=== PATIENT | male | born 1960 | race Caucasian/White ===

== ENCOUNTER 2017-10-28 20:11 | Inpatient (IN) | payer SELFPAY ==
--- NOTE | 2017-10-28 20:29 | ER Report ---
History and Physical Time Seen By MD: 20:28 Hx. of Stated Complaint: PT STATES HE HAS A KIDNEY STONE ON THE LEFT SIDE. PT STATES HE HAS BLOOD IN THE URINE, PT NAUSEATED AT THIS TIME. PT HAS HX OF KIDNEY STONES HPI/ROS CHIEF COMPLAINT: kidney stone, left side HISTORY OF PRESENT ILLNESS: This is a 56 year old male. He has been having left sided flank and lower abdominal pain consistent with his history of kidney stones in the past. Has blood in urine. Nausea and vomiting. Many stones in the past. Medullary spongy kidney disease. No fevers or chills. Pain is severe, nothing relieves it. Normal bowels. Allergies: Coded Allergies: erythromycin base (Verified Allergy, Unknown, COMA , 10/28/17) Uncoded Allergies: NAPROXEN SODIUM (Allergy, Severe, ANAPHYLAXIS , 10/28/17) Home Meds No Active Prescriptions or Reported Meds Reviewed Nurses Notes: Yes Hx Substance Use Disorder: No Hx Alcohol Use: No Constitutional Vital Sign - Last 24 Hours 10/28/17 10/28/17 10/28/17 10/28/17 20:13 20:26 21:39 21:41 Temp 98.3 Pulse 60 67 66 Resp 16 B/P (MAP) 153/95 144/90 (108) Pulse Ox 97 99 98 O2 Delivery Room Air 10/28/17 10/28/17 10/28/17 10/28/17 21:46 21:51 21:55 21:56 Pulse 73 78 63 Pulse Ox 95 82 100 O2 Flow Rate 3.0 10/28/17 10/28/17 10/28/17 22:00 22:01 22:06 Pulse 77 64 B/P (MAP) 145/92 (109) Pulse Ox 100 100 Physical Exam General Appearance: The patient is alert. Having acute distress due to pain and nausea. Eyes: Pupils are equal, round. No pallor, injection or icterus. ENT: Mucous membranes are moist. Normal oral mucosa. Posterior oropharynx is normal Respiratory: Lungs are clear to auscultation. Cardiovascular: Regular rate and rhythm. No murmurs, gallops or rubs. Gastrointestinal: Abdomen is soft and no reproducible tender. Nondistended. Normal active bowel sounds. Has left CVA tenderness with percussion. Neurological: Alert and oriented x3. Skin: Warm and dry. No rashes. Musculoskeletal: No musculoskeletal tenderness. DIFFERENTIAL DIAGNOSIS: After history and physical exam, differential diagnosis was considered for kidney stones and pain on left side consistent with history of stone. History of lithotripsy and stents in the past. Will get a non- contrast CT to look for size and position to help decide on treatment at this time. Medical Decision Making Data Points Result Diagram: 10/28/17201610/28/172016 Laboratory Hematology Test 10/28/17 20:17 Red Blood Count 5.23 M/uL (4.00-5.60) Mean Corpuscular Volume 83.6 fL (80.0-96.0) Mean Corpuscular Hemoglobin 29.8 pg (26.0-33.0) Mean Corpuscular Hemoglobin Concent 35.7 g/dL (32.0-36.0) Red Cell Distribution Width 15.7 % (11.5-14.5) Mean Platelet Volume 8.6 fL (7.2-11.1) Neutrophils (%) (Auto) 61.9 % (39.4-72.5) Lymphocytes (%) (Auto) 27.1 % (17.6-49.6) Monocytes (%) (Auto) 8.9 % (4.1-12.4) Eosinophils (%) (Auto) 1.4 % (0.4-6.7) Basophils (%) (Auto) 0.7 % (0.3-1.4) Nucleated RBC Relative Count (auto) 0.1 /100WBC Neutrophils # (Auto) 4.8 K/uL (2.0-7.4) Lymphocytes # (Auto) 2.1 K/uL (1.3-3.6) Monocytes # (Auto) 0.7 K/uL (0.3-1.0) Eosinophils # (Auto) 0.1 K/uL (0.0-0.5) Basophils # (Auto) 0.1 K/uL (0.0-0.1) Nucleated RBC Absolute Count (auto) 0.01 K/uL Sodium Level 139 mmol/L (137-145) Potassium Level 3.6 mmol/L (3.5-5.0) Chloride Level 104 mmol/L (98-107) Carbon Dioxide Level 25 mmol/L (22-30) Blood Urea Nitrogen 17 mg/dl (9-21) Creatinine 1.00 mg/dl (0.66-1.25) Glomerular Filtration Rate Calc > 60.0 Random Glucose 105 mg/dl (75-110) Calcium Level 9.6 mg/dl (8.4-10.2) Total Bilirubin 0.5 mg/dl (0.2-1.3) Aspartate Amino Transf (AST/SGOT) 35 U/L (0-35) Alanine Aminotransferase (ALT/SGPT) 44 U/L (0-56) Alkaline Phosphatase 63 U/L (0-126) Total Protein 7.3 g/dl (6.3-8.2) Albumin 4.3 g/dl (3.5-5.0) Chemistry Test 10/28/17 20:17 White Blood Count 7.7 k/uL (4.5-11.0) Red Blood Count 5.23 M/uL (4.00-5.60) Hemoglobin 15.6 g/dL (14.0-18.0) Hematocrit 43.7 % (42.0-52.0) Mean Corpuscular Volume 83.6 fL (80.0-96.0) Mean Corpuscular Hemoglobin 29.8 pg (26.0-33.0) Mean Corpuscular Hemoglobin Concent 35.7 g/dL (32.0-36.0) Red Cell Distribution Width 15.7 % (11.5-14.5) Platelet Count 220 K/uL (150-450) Mean Platelet Volume 8.6 fL (7.2-11.1) Neutrophils (%) (Auto) 61.9 % (39.4-72.5) Lymphocytes (%) (Auto) 27.1 % (17.6-49.6) Monocytes (%) (Auto) 8.9 % (4.1-12.4) Eosinophils (%) (Auto) 1.4 % (0.4-6.7) Basophils (%) (Auto) 0.7 % (0.3-1.4) Nucleated RBC Relative Count (auto) 0.1 /100WBC Neutrophils # (Auto) 4.8 K/uL (2.0-7.4) Lymphocytes # (Auto) 2.1 K/uL (1.3-3.6) Monocytes # (Auto) 0.7 K/uL (0.3-1.0) Eosinophils # (Auto) 0.1 K/uL (0.0-0.5) Basophils # (Auto) 0.1 K/uL (0.0-0.1) Nucleated RBC Absolute Count (auto) 0.01 K/uL Glomerular Filtration Rate Calc > 60.0 Calcium Level 9.6 mg/dl (8.4-10.2) Total Bilirubin 0.5 mg/dl (0.2-1.3) Aspartate Amino Transf (AST/SGOT) 35 U/L (0-35) Alanine Aminotransferase (ALT/SGPT) 44 U/L (0-56) Alkaline Phosphatase 63 U/L (0-126) Total Protein 7.3 g/dl (6.3-8.2) Albumin 4.3 g/dl (3.5-5.0) EKG/Imaging Imaging COMPUTED TOMOGRAPHY OF THE Abdomen and Pelvis without CONTRAST INDICATION: Left flank pain with history of stones. TECHNIQUE: Contiguous axial 3.[address] images were obtained through the abdomen and pelvis without contrast. Coronal and sagittal reformatted images were submitted. COMPARISON: None. FINDINGS: Lung bases: The lung bases are clear. There is a large hiatal hernia. Liver and hepatic vasculature: Limited liver parenchymal evaluation without contrast. No ascites. Gallbladder and bile ducts: Normal Spleen: Normal Pancreas: Normal Adrenals: Normal Kidneys, ureters and bladder: There are innumerable punctate renal calculi bilaterally in addition to several larger calculi most notable on the left. Calcification at the UPJ results in moderate left hydronephrosis. This stone measures just over 1 cm in maximal dimension. The downstream ureter is normal caliber. The bladder appears normal. Retroperitoneum and aorta: Normal caliber aorta. GI tract, mesentery and peritoneum: Normal appendix. No bowel obstruction. There are numerous sigmoid and left colonic diverticula without current findings of diverticulitis. Prostate: Central calcifications but otherwise unremarkable. Bones and soft tissues: No acute osseous abnormality. Vacuum disc phenomenon at L5-S1. IMPRESSION: 1. Moderate left hydronephrosis related to a roughly 1 cm calculus at the UPJ. 2. Innumerable bilateral punctate nonobstructive renal calculi with a few additional larger calculi on the left. 3. Large hiatal hernia. 4. Diverticulosis without findings of diverticulitis. One of the following dose optimization techniques was utilized in the performance of this exam: Automated exposure control; adjustment of the mA and/ or kV according to the patient's size; or use of an iterative reconstruction technique. Specific details can be referenced in the facility's radiology CT exam operational policy. Report Dictated By: Familia Morales MD at 10/28/2017 9:26 PM ED Course/Re-evaluation Clinical Indication for ER IV: Hydration, IV Access ED Course Gave Dilaudid 1mg IV and Zofran 4mg IV and a liter of normal saline. Flomax 0.4mg oral dose given. Patient improved. Worsened pain after scan, given another Dilaudid 1mg IV and another Zofran 4mg IV dose for nausea. CT shows 1cm stone at left UPJ with moderate hydronephrosis. Discussed with patient and then called Dr. Mcgill. Admission for pain control and likely need for stent tomorrow. Decision to Disposition Date: Oct 28, 2017 Decision to Disposition Time: 22:03 Depart Departure Latest Vital Signs Vital Signs Date Time Temp Pulse Resp B/P (MAP) Pulse Ox O2 Delivery O2 Flow Rate FiO2 10/28/17 22:06 64 100 10/28/17 22:00 145/92 (109) 10/28/17 21:55 3.0 10/28/17 20:13 98.3 16 Room Air Impression: Primary Impression: Kidney stone on left side Condition: Improved Disposition: Admitted from ER New Scripts No Active Prescriptions or Reported Meds JAGJIT STUBBS MD Oct 28, 2017 20:29
[2017-10-28] MEDS ORDERED: HYDROMORPHONE HCL 1 MG/ML SYRINGE IVP ONE ×2 (20:35→21:30)
[2017-10-28] MEDS ORDERED: TAMSULOSIN HCL 0.4 MG CAP PO ONE (20:35)
[2017-10-28] MEDS ORDERED: NS(*) 0.9% 1000 ML BAG 1,000 ML IV ONE (20:35)
[2017-10-28] MEDS ORDERED: ONDANSETRON 4 MG/2 ML VIAL IVP ONE ×2 (20:35→21:45)
[2017-10-28 20:38] LABS: PLATELET COUNT, AUTOMATED 220 K/uL (150-450)
--- NOTE | 2017-10-28 21:39 | RADIOLOGY IMAGING REPORT ---
FACILITY: [facility] PATIENT NAME: Steve Gonzales : 1960 MR: [id number] V: [id number] EXAM DATE: ORDERING PHYSICIAN: JAGJIT STUBBS TECHNOLOGIST: Location: [facility] [place] Patient: Steve Gonzales : 1960 Visit/Account:[id number] Date of Sevice: 10/28/2017 COMPUTED TOMOGRAPHY OF THE Abdomen and Pelvis without CONTRAST INDICATION: Left flank pain with history of stones. TECHNIQUE: Contiguous axial 3.[address] images were obtained through the abdomen and pelvis without co ntrast. Coronal and sagittal reformatted images were submitted. COMPARISON: None. FINDINGS: Lung bases: The lung bases are clear. There is a large hiatal hernia. Liver and hepatic vasculature: Limited liver parenchymal evaluation without contrast. No ascites. Gallbladder and bile ducts: Normal Spleen: Normal Pancreas: Normal Adrenals: Normal Kidneys, ureters and bladder: There are innumerable punctate renal calculi bilaterally in addition t o several larger calculi most notable on the left. Calcification at the UPJ results in moderate left hydronephrosis. This stone measures just over 1 cm in maximal dimension. The downstream ureter is nor mal caliber. The bladder appears normal. Retroperitoneum and aorta: Normal caliber aorta. GI tract, mesentery and peritoneum: Normal appendix. No bowel obstruction. There are numerous sigmoid and left colonic diverticula without current findings of diverticulitis. Prostate: Central calcifications but otherwise unremarkable. Bones and soft tissues: No acute osseous abnormality. Vacuum disc phenomenon at L5-S1. IMPRESSION: 1. Moderate left hydronephrosis related to a roughly 1 cm calculus at the UPJ. 2. Innumerable bilateral punctate nonobstructive renal calculi with a few additional larger calculi o n the left. 3. Large hiatal hernia. 4. Diverticulosis without findings of diverticulitis. One of the following dose optimization techniques was utilized in the performance of this exam: Autom ated exposure control; adjustment of the mA and/or kV according to the patient's size; or use of an i terative reconstruction technique. Specific details can be referenced in the facility's radiology C T exam operational policy. Report Dictated By: Familia Morales MD at 10/28/2017 9:26 PM Report E-Signed By: Familia Morales MD at 10/28/2017 9:35 PM WSN:[id number]
[2017-10-28 22:34] VITALS: BP 150/90
[2017-10-28] MEDS ORDERED: PROMETHAZINE 25 MG/ML 1 ML AMP IVP PRN (22:40)
[2017-10-28] MEDS ORDERED: ONDANSETRON 4 MG/2 ML VIAL IVP PRN (22:40)
[2017-10-28] MEDS: KCL/D1/2NS 20 MEQ 1000 ML 1,000 ML IV PRN (23:11)
[2017-10-28] MEDS: HYDROmorphone PCA 6 MG/30 ML IV PRN (23:12)
[2017-10-29] VITALS (13 sets, daily range): BP systolic 106–145; BP diastolic 66–87
[2017-10-29] MEDS ORDERED: METO25TA93 PO (06:38)
[2017-10-29] MEDS: KCL/D1/2NS 20 MEQ 1000 ML 1,000 ML IV PRN (07:33)
[2017-10-29] MEDS: HYDROmorphone PCA 6 MG/30 ML IV PRN ×2 (08:49→23:39)
[2017-10-29] MEDS ORDERED: FAMOTIDINE(*) 20MG/50ML PREMIX 50 ML IVPB ONE (12:40)
[2017-10-29] MEDS ORDERED: NORMOSOL R SOLN(*) 1000 ML BAG 1,000 ML IV ONE (12:40)
[2017-10-29] MEDS ORDERED: IOPAMIDOL-200 50 ML VIAL IS ONE (12:49)
--- NOTE | 2017-10-29 13:03 | EKG ---
FACILITY: [facility] PATIENT NAME: DOC KHALIL : [id number] MR: [id number] V: [id number] EXAM DATE: ORDERING PHYSICIAN: CHELY MENDOZA TECHNOLOGIST: Test Reason : CLEAR FOR OR Blood Pressure : / mmHG Vent. Rate : 060 BPM Atrial Rate : 060 BPM P-R Int : 170 ms QRS Dur : 090 ms QT Int : 404 ms P-R-T Axes : 043 005 019 degrees QTc Int : 404 ms Normal sinus rhythm Normal ECG No previous ECGs available Confirmed by TERRIE HUSSEIN ([id number]) on 10/29/2017 7:58:20 PM Referred By: REJI Confirmed By:TERRIE HUSSEIN
[2017-10-29] MEDS ORDERED: cefTRIAXone(*) 1 GM VIAL 1 GM in NS(*) 0.9% 100 ML ADDVANT BAG 100 ML IVPB ONE (13:20)
[2017-10-29] MEDS ORDERED: cefTRIAXone 1 GM VIAL ONE (13:23)
[2017-10-29] MEDS ORDERED: NS(*) 0.9% 100 ML ADDVANT BAG 100 ML ONE (13:24)
[2017-10-29] MEDS ORDERED: SUCCINYLCHOL CHL 200MG/10ML VL ONE (13:45)
[2017-10-29] MEDS ORDERED: KETOROLAC 30 MG/ML VIAL ONE (13:55)
[2017-10-29] MEDS ORDERED: ONDANSETRON 4 MG/2 ML VIAL ONE (13:55)
[2017-10-29] MEDS ORDERED: DEXAMETHASONE SOD PHOS 10MG/ML ONE (13:55)
[2017-10-29] MEDS ORDERED: PROPOFOL EMUL(*) 10MG/ML 20 ML 20 ML ONE (13:55)
[2017-10-29] MEDS ORDERED: fentaNYL CITR 100 MCG/2 ML AMP ONE (13:56)
[2017-10-29] MEDS ORDERED: OXYCHLOROSENE SOD 2 GM BTL 2 GM in WATER STERILE IRRIG(*) 1000ML 1,000 ML IR ONE (14:30)
[2017-10-29] MEDS ORDERED: NALOXONE HCL 0.4 MG/ML VIAL IVP PRN (14:50)
[2017-10-29] MEDS ORDERED: ONDANSETRON 4 MG/2 ML VIAL IVP PRN (14:50)
[2017-10-29] MEDS ORDERED: ZOLPIDEM TARTRATE 5 MG TAB PO PRN (14:50)
[2017-10-29] MEDS ORDERED: FLUSH 10 ML SYR IVP PRN (14:50)
[2017-10-29] MEDS ORDERED: ACETAMIN/CODEINE #3 300-30 MG PO PRN (14:50)
--- NOTE | 2017-10-29 14:52 | RADIOLOGY IMAGING REPORT ---
FACILITY: [facility] PATIENT NAME: Steve Gonzales : 1960 MR: [id number] V: [id number] EXAM DATE: [id number] ORDERING PHYSICIAN: CHELY MENDOZA TECHNOLOGIST: Location: [facility] Patient: Steve Gonzales : 1960 Visit/Account:[id number] Date of Sevice: 10/29/2017 Exam type: RETROGRADE PYELOGRAM History: HEMATURIA Comparison: CT abdomen pelvis October 28, 2017 Findings: Four intraoperative serum spot views were obtained over the abdomen and pelvis. The fluoroscopy time was 0.1 minutes. The fluoroscopy dose was 3.94 mGray.. The provided images demonstrate placement o f a left ureteral stent. Multiple calcifications again seen over the left renal shadow IMPRESSION: 1. As above Report Dictated By: Kathie Green MD at 10/29/2017 2:46 PM Report E-Signed By: Kathie Green MD at 10/29/2017 2:48 PM WSN:[id number]
[2017-10-29] MEDS: LR(*) 1000 ML BAG 1,000 ML IV PRN ×2 (16:09→22:38)
--- NOTE | 2017-10-29 16:15 | OPERATIVE REPORT 1 ---
EVENT DATE: October 29, 2017 SURGEON: Marcio Mcgill MD ANESTHESIOLOGIST: Marcio Barragan MD ANESTHESIA: General PREOPERATIVE DIAGNOSIS Left ureteropelvic junction lithiasis. POSTOPERATIVE DIAGNOSIS Left ureteropelvic junction lithiasis with associated severe ureterorenal colic and nausea and vomiting. PROCEDURES PERFORMED 1. Cystourethroscopy. 2. 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 DESCRIPTION OF PROCEDURE The lesion was removed with the grasping forceps. The lesion was removed intact, in my opinion. The base of the lesion was fulgurated in its entirety. The lesion extended for approximately 1 cm off the bladder wall and was approximately 1 cm across in its greatest diameter and was coming off a 3 to 4 mm stalk. Clorpactin bladder treatment was administered. The Clorpactin was left in contact with the surface of the bladder for approximately five minutes. Hopefully, this will prevent spread of the transitional cell carcinoma of the left ureter into the left kidney. The stone was easily dislodged with a 10 cone tip catheter. There was a hydronephrotic drip. It was barber tinged. The access catheter was placed, and a 0.035 guidewire and then a 6-Zimbabwean x 28 cm PercuFlex Plus passed up the left collecting system into the kidney. There were full curls in both the kidney and the bladder. Bladder was irrigated clear. Patient tolerated the procedure satisfactorily and returned to the Recovery Room in satisfactory condition. This is a 56-year-old white male who presented to the Emergency Room with the complaint of severe left ureterorenal colic. Patient is known to have a problem with medullary sponge kidney. Patient has had multiple treatments for ureterolithiasis in the past. No chills or fever. Patient was having severe ureterorenal colic with associated nausea and vomiting. Patient requested evaluation and treatment. That has been accomplished. See operative note for details. Will follow up on the October for ESWL treatment of his renal pelvis stone. Patient will be probably ready for discharge home in the a.m. if all is going well. Force fluids, 12 glasses of water per day. Activities are as tolerated. He is to strain all his urine. He is sent home with strainers. He is to continue his usual medications. A copy of instructions was given to the patient. Plan followup in the office. Plan reevaluation and therapy on the October. He is to contact me if he has any problems. Patient will be sent home in addition on Pepcid, Motrin, and Tylenol No. 3 therapy. MTDD
[2017-10-29] MEDS: FAMOTIDINE 20 MG TAB PO SCH (20:32)
[2017-10-29] MEDS: DOCUSATE SODIUM 100 MG CAP PO SCH (20:32)
[2017-10-30 03:20] VITALS: BP 93/55
[2017-10-30] MEDS: LR(*) 1000 ML BAG 1,000 ML IV PRN (05:55)
[2017-10-30 07:32] VITALS: BP 107/64
[2017-10-30] MEDS: DOCUSATE SODIUM 100 MG CAP PO SCH (10:06)
[2017-10-30] MEDS: FAMOTIDINE 20 MG TAB PO SCH (10:06)
[2017-10-30] MEDS ORDERED: CEPH500T7 PO (10:52)
[2017-10-30] MEDS ORDERED: FAMO20TA28 PO (10:52)
[2017-10-30] MEDS ORDERED: IBUP800T37 PO (10:53)
[2017-10-30] MEDS ORDERED: HYDR-4308 PO (10:54)
[2017-10-30] MEDS ORDERED: cefTRIAXone(*) 1 GM VIAL 1 GM in NS(*) 0.9% 100 ML ADDVANT BAG 100 ML IVPB SCH (13:30)
== END 2017-10-30 13:15 | disposition home or self-care (01) | DRG 669 ==
LOC: ER 20:18 → MED 22:10
PROC: 0TC78ZZ Extirpation of Matter from Left Ureter, Via Natural or Artificial Opening Endoscopic (ICD-10-PCS; principal; 2017-10-29 13:31)
PROC: 0T5B8ZZ Destruction of Bladder, Via Natural or Artificial Opening Endoscopic (ICD-10-PCS; 2017-10-29 13:31)
DX: C67.9 Malignant neoplasm of bladder, unspecified (principal); N13.2 Hydronephrosis with renal and ureteral calculous obstruction; K58.9 Irritable bowel syndrome, unspecified; K44.9 Diaphragmatic hernia without obstruction or gangrene; Z88.1 Allergy status to other antibiotic agents
CPT/HCPCS: 74176; 74420; 82040; 82247; 82310; 82374; 82435; 82565; 82947; 84075; 84132; 84155; 84295; 84450; 84460; 84520; 85025; 88305; 93005; 96374; 96375; 96376; 99284; C1769; C1894; C2617; J0330; J0696; J1100; J1170; J1885; J2405; J2704; J3010; J3480; J3490; J7030; J7050; J7120; Q9966

== ENCOUNTER 2017-11-08 01:22 | Day surgery (SDC) | payer SELFPAY ==
[2017-11-08] VITALS (7 sets, daily range): BP systolic 107–133; BP diastolic 75–99
[~2017-11-08] VITALS: Ht 185.4 cm; Wt 89.4 kg
[~2017-11-08 01:22] MED LIST: CEPH500T7 PO; FAMO20TA28 PO; HYDR-4308 PO; IBUP800T37 PO; METO25TA93 PO; MIRT-25 PO
[2017-11-08] MEDS ORDERED: DEXAMETHASONE SOD 4 MG/ML VIAL ONE (07:05)
[2017-11-08] MEDS ORDERED: fentaNYL CITR 100 MCG/2 ML AMP ONE (07:05)
[2017-11-08] MEDS ORDERED: LIDOCAINE MPF 1% 5 ML VIAL ONE (07:05)
[2017-11-08] MEDS ORDERED: ONDANSETRON 4 MG/2 ML VIAL ONE (07:05)
[2017-11-08] MEDS ORDERED: PROPOFOL EMUL(*) 10MG/ML 20 ML 20 ML ONE (07:05)
[2017-11-08] MEDS ORDERED: KETAMINE HCL 200 MG/20 ML MDV ONE (07:11)
[2017-11-08] MEDS ORDERED: OXYCHLOROSENE SOD 2 GM BTL 2 GM in WATER STERILE IRRIG(*) 1000ML 1,000 ML IR ONE (07:40)
--- NOTE | 2017-11-08 07:40 | RADIOLOGY IMAGING REPORT ---
FACILITY: [facility] - [place] PATIENT NAME: Steve Gonzales : 1960 MR: [id number] V: [id number] EXAM DATE: ORDERING PHYSICIAN: CHELY MENDOZA TECHNOLOGIST: Location: [facility] - [place] Patient: Steve Gonzales : 1960 Visit/Account:[id number] Date of Sevice: 11/08/2017 KUB SINGLE VIEW ABDOMEN HISTORY: Pre-ESWL. Left stone and stent. History of multiple stones. COMPARISON: CT abdomen pelvis 10/28/2017. FINDINGS: A single AP supine view of the abdomen was obtained. There is a left ureteral stent in appropriate location, new from CT. There are numerous left greater than right renal calculi. The largest measures 1.4 cm and is located on the left at the mid to inferi or renal fossa, previously at the left ureteropelvic junction. There are left pelvic phleboliths. Distrubution of bowel gas is normal with bowel in all four quadrants as well as centrally. No dilated bowel loops. No free air. IMPRESSION: 1. Bilateral nephrolithiasis, with the largest stone measuring 1.4 cm on the left. 2. Left ureteral stent. Report Dictated By: Amara Triana at 11/08/2017 7:34 AM Report E-Signed By: Amara Triana at 11/08/2017 7:36 AM WSN:[id number]
[2017-11-08] MEDS ORDERED: GLYCOPYRROLATE 0.2MG/ML 1 ML INJ ONE (07:45)
[2017-11-08] MEDS ORDERED: GENTAMICIN 80 MG/2 ML VIAL ONE (07:45)
[2017-11-08] MEDS ORDERED: LIDOCAINE/SOD BICARB 8.4% SYR ID ONE (07:55)
[2017-11-08] MEDS ORDERED: ceFAZolin(*) 2GM/D5W 50ML 50 ML IVPB ONE (07:55)
[2017-11-08] MEDS ORDERED: NORMOSOL R SOLN(*) 1000 ML BAG 1,000 ML IV PRN (07:55)
[2017-11-08] MEDS ORDERED: FAMOTIDINE 20 MG TAB PO ONE (07:55)
[2017-11-08] MEDS ORDERED: MIDAZOLAM 2 MG/2 ML VIAL IVP PRN (07:55)
[2017-11-08] MEDS ORDERED: WATER FOR IRRIG,STERILE 3000ML IR ONE (08:18)
[2017-11-08] MEDS ORDERED: HYDR-389 PO (09:49)
[2017-11-08] MEDS ORDERED: FAMO20TA28 PO (09:52)
[2017-11-08] MEDS ORDERED: CEPH500T7 PO (09:59)
[2017-11-08] MEDS ORDERED: APAP/HYDROCODONE 325/7.5 TAB ONE (10:02)
--- NOTE | 2017-11-08 10:20 | FLOCK CYSTOURETHROSCOPY ---
EVENT DATE: November 08, 2017 SURGEON: Christopher Mcgill MD ANESTHESIOLOGIST: Masood Wen MD ANESTHESIA: draughtsman: Staff PREOPERATIVE DIAGNOSES 1. Left ureteral pyelocaliectasis 2. Status post cancer treatment. 3. Status post left ureteral stent placement. POSTOPERATIVE DIAGNOSES 1. Left ureteral pyelocaliectasis. 2. Status post cancer treatment. 3. Status post left ureteral stent placement. PROCEDURES PERFORMED 1. Cystourethroscopy. 2. Clorpactin bladder treatment. 3. Left extracorporeal shock wave lithotripsy of one stone, 3000 shocks. DESCRIPTION OF PROCEDURE Under general anesthetic, the patient was prepped and draped in the extended lithotomy position. The 21-Panendoscope was admitted through the urethra and into the bladder. No stones were visible. The stent was present at the left ureteral orifice. The site of the bladder tumor treatment was evident and bladder appeared to be intact. There were spots of inflammation secondary to the indwelling ureteral stent. The bladder was drained. The bladder was filled under gravity flow with Clorpactin solution. The Clorpactin was left in contact for approximately five minutes and then drained. The bladder was irrigated clear of the Clorpactin. Water was left, approximately 100 cc, in the bladder at the conclusion of the procedure. The patient was positioned for left extracorporeal shock wave lithotripsy. Approximately 1.5 cm stone in its greatest diameter present in the left renal pelvis was treated with a total of 3000 shocks, progressing from low to high kV fairly slowly. The stone appeared to be disintegrated after 500-600 shocks. After 3000 shocks, the stone appeared to be totally disintegrated. The patient tolerated the procedure satisfactorily and returned to the recovery room in satisfactory condition. INDICATION FOR PROCEDURE This is a 56-year-old white male complaining of left ureteral renal colic. Medications failed to relieve his problem and he subsequently had stent placement. The patient is in followup for reevaluation and treatment. That has been accomplished. See operative note for details. That has been accomplished. See operative note for details. DISCHARGE The patient will be ready for discharge home when alert and functional. He is to force fluids with 12 glasses of water per day. Activities are as tolerated. He is to strain all of his urine. He is sent home with a strainer. He is to percuss his left kidney frequently to facilitate passage of stone particles. A copy of instructions for renal percussion were given to the patient. The patient is to continue Keflex, Prevacid and [place] therapy. PLAN Follow up in approximately two weeks for reevaluation and for resolution of the stone and probable stent removal. MARY
[2017-11-18] MEDS ORDERED: METO50TA19 PO (08:21)
== END 2017-11-08 10:20 | disposition home or self-care (01) ==
LOC: OR 01:22
DX: N13.30 Unspecified hydronephrosis (principal)
CPT/HCPCS: 50590; 51700; 74018; A4338; J1100; J1580; J2001; J2250; J2405; J2704; J3010; J3490; J0690

== ENCOUNTER 2017-11-22 00:53 | Day surgery (SDC) | payer SELFPAY ==
[2017-11-22] VITALS (9 sets, daily range): BP systolic 108–149; BP diastolic 61–94
[~2017-11-22] VITALS: Ht 185.4 cm; Wt 93.4 kg
[~2017-11-22 00:53] MED LIST changes: +HYDR-389 PO; +METO50TA19 PO
[2017-11-22] MEDS ORDERED: MIDAZOLAM 2 MG/2 ML VIAL IVP PRN (06:30)
[2017-11-22] MEDS ORDERED: FAMOTIDINE 20 MG TAB PO ONE (06:30)
[2017-11-22] MEDS ORDERED: ceFAZolin(*) 2GM/D5W 50ML 50 ML IVPB ONE (06:30)
[2017-11-22] MEDS ORDERED: NORMOSOL R SOLN(*) 1000 ML BAG 1,000 ML IV PRN (06:30)
[2017-11-22] MEDS ORDERED: LIDOCAINE/SOD BICARB 8.4% SYR ID ONE (06:30)
[2017-11-22] MEDS ORDERED: IOPAMIDOL-200 50 ML VIAL IS ONE ×2 (06:43→06:57)
[2017-11-22] MEDS ORDERED: HYDROCORTISONE 1% CR 28.35 GM TP ONE (06:57)
[2017-11-22] MEDS ORDERED: fentaNYL CITR 100 MCG/2 ML AMP ONE ×2 (07:11→08:24)
[2017-11-22] MEDS ORDERED: LIDOCAINE 2% IV 100 MG/5ML SYR ONE (07:12)
[2017-11-22] MEDS ORDERED: PROPOFOL EMUL(*) 10MG/ML 20 ML 20 ML ONE (07:13)
--- NOTE | 2017-11-22 07:33 | RADIOLOGY IMAGING REPORT ---
FACILITY[place] [facility] [place] PATIENT NAME: Steve Gonzaels : 1960 MR: [id number] V: [id number] EXAM DATE: ORDERING PHYSICIAN: RADHIKA BROWN TECHNOLOGIST: Location: [facility] - [place] Patient: Steve Gonzales : 1960 Visit/Account:[id number] Date of Sevice: 11/22/2017 Abdomen: Indication: Left renal calculus. Technique: A single supine view was obtained. Comparison: 11/08/2017 Findings: The left ureteral stent remains in satisfactory position. It now appears that there are mul tiple small stone fragments in the lower pole calyces of the left kidney. No opaque calculi are clear ly identified in the left ureter. 2 calcified phleboliths in the pelvis appear unchanged. The intestinal gas pattern is unremarkable. The skeletal structures are intact and unchanged. Impression: It now appears that there are multiple small stone fragments in the lower pole calyces of the left kidney. No opaque calculi are clearly identified in the left ureter. Report Dictated By: Gideon Biswas MD at 11/22/2017 7:26 AM Report E-Signed By: Gideon Biswas MD at 11/22/2017 7:29 AM WSN:[id number]
[2017-11-22] MEDS ORDERED: OXYCHLOROSENE SOD 2 GM BTL 2 GM in WATER STERILE IRRIG(*) 1000ML 1,000 ML IR ONE (07:45)
[2017-11-22] MEDS ORDERED: DEXAMETHASONE SOD 4 MG/ML VIAL ONE (07:54)
[2017-11-22] MEDS ORDERED: ONDANSETRON 4 MG/2 ML VIAL ONE (07:56)
[2017-11-22] MEDS ORDERED: mitoMYcin 20 MG VIAL 40 MG in WATER STERILE FOR INJ 50 ML VL 40 ML IR ONE (10:45)
[2017-11-22] MEDS ORDERED: FAMO20TA28 PO (11:18)
[2017-11-22] MEDS ORDERED: IBUP800T37 PO (11:19)
[2017-11-22] MEDS ORDERED: ACET-3017 PO (11:20)
[2017-11-22] MEDS ORDERED: CEPH500T7 PO (11:21)
[2017-11-22] MEDS ORDERED: ACETAMIN/CODEINE #3 300-30 MG PO ONE (12:27)
--- NOTE | 2017-11-22 12:29 | OPERATIVE REPORT 1 ---
EVENT DATE: November 22, 2017 SURGEON: Marcio Mcgill MD ANESTHESIOLOGIST: Masood Wen MD ANESTHESIA: General PREOPERATIVE DIAGNOSIS 1. Left renal lithiasis. 2. Status postop left ureteral stent. 3. Status postop left ESWL POSTOPERATIVE DIAGNOSIS 1. Left renal lithiasis. 2. Status postop left ureteral stent. 3. Status postop left ESWL. PROCEDURE PERFORMED 1. Cystourethroscopy. 2. Clorpactin bladder treatment. 3. Left extracorporeal shock wave lithotripsy of three stones. 4. Mitomycin C bladder treatment. DESCRIPTION OF PROCEDURE Under general anesthetic, the patient was prepped and draped in the extended lithotomy position. The 21-Panendoscope was admitted through the urethra and into the bladder. The bladder was drained. Urine was obtained for culture and sensitivity. The bladder showed 4+ trabeculation. Trigone and ureteral orifices were normal except for the left ureteral orifice where the left ureteral stent was present. It showed inflammation and edema around the left ureteral orifice. There where spots of inflammation on the base of the posterior wall of the bladder, secondary to probably the indwelling left ureteral stent. The previous removal of the bladder cancer lesion appeared to be healing satisfactorily just inferior and to the left of the left ureteral orifice. The bladder was inspected and no other demonstrable lesions were found. The bladder was filled under gravity flow with Clorpactin solution. The solution was left intact for approximately 5 minutes. The bladder was drained of the Clorpactin solution. The bladder was irrigated four times to remove any excess Clorpactin. A small amount of solution, approximately 100 cc, was left in the bladder. The patient was positioned for left extracorporeal shock wave lithotripsy. The larger collection of stones in the inferior pole and the inferior mid area of the left kidney and two other stones in the superior pole area were treated with a total of 3000 shocks, progressing from low to high kV fairly slowly. The catheter was left indwelling for the Mitomycin C bladder treatment. The patient returned to the recovery room in satisfactory condition. INDICATION FOR PROCEDURE This is a 56-year-old white male with medullary sponge kidney. He has had multiple stone treatments over the years. He is a recent resident that moved to the [facility] from [place]. The patient had a large, greater than 1 cm stone that was lodged in the left ureteropelvic junction area. A stent was subsequently placed and the stone was manipulated in the left ureteral pelvis. The patient had ESWL treatment late October,. The stone appeared to be fragmented, but there was a larger collection of stones in the inferior pole area and the left mid inferior pole area. The stone collections appeared to be larger than the previous studies. There was concern some stone fragments collected in the inferior pole area of the kidney. The patient was subsequently treated as previously noted to clear up his urolithiasis problem. The patient will be ready for discharge home when alert and functional. He is to force fluids with 12 glasses of water per day. Activities are as tolerated. He is to strain all of his urine. He is sent home with a strainer. He is to percuss his left kidney frequently to facility passage of stone particles. A copy of instruction for renal percussion were given to the patient. He is to follow up the November,. He is to call for an appointment. He is to continue his usual medications. Copy of instructions were given to the patient. Mitomycin C treatment 40 mg was given in the recovery room for his bladder cancer treatment. We will follow up with the patient with KUB to evaluate for resolution of his urolithiasis. [facility]
== END 2017-11-22 10:30 | disposition home or self-care (01) ==
LOC: OR 00:53
DX: N20.0 Calculus of kidney (principal)
CPT/HCPCS: 50590; 51720; 74018; 87088; A4338; C1769; J1100; J2001; J2250; J2405; J2704; J3010; J9280; J0690; Q9966

== ENCOUNTER 2017-12-06 02:05 | Day surgery (SDC) | payer SELFPAY ==
[~2017-12-06] VITALS: Ht 185.4 cm; Wt 89.8 kg
[~2017-12-06 02:05] MED LIST changes: +ACET-3017 PO
[2017-12-06 06:00] VITALS: BP 126/83
[2017-12-06] MEDS ORDERED: LIDOCAINE/SOD BICARB 8.4% SYR ID ONE (06:30)
[2017-12-06] MEDS ORDERED: FAMOTIDINE 20 MG TAB PO ONE (06:30)
[2017-12-06] MEDS ORDERED: ceFAZolin(*) 2GM/D5W 50ML 50 ML IVPB ONE (06:30)
[2017-12-06] MEDS ORDERED: NORMOSOL R SOLN(*) 1000 ML BAG 1,000 ML IV PRN (06:30)
--- NOTE | 2017-12-06 06:47 | RADIOLOGY IMAGING REPORT ---
FACILITY: [facility] - [place] PATIENT NAME: Steve Gonzales : 1960 MR: [id number] V: [id number] EXAM DATE: ORDERING PHYSICIAN: CHELY MENDOZA TECHNOLOGIST: Location: [facility] [place] Patient: Steve Gonzales : 1960 Visit/Account:[id number] Date of Sevice: 12/06/2017 KUB SINGLE VIEW ABDOMEN HISTORY: Ureterolithiasis. COMPARISON: 11/22/2017 and studies dating to 10/28/2017. FINDINGS: A single AP supine view of the abdomen was obtained. There is a left ureteral stent. There are left renal calculi. No calculus along the course of the cat nt. There are punctate calculi at the right renal fossa There are 2 left pelvic phleboliths. Distrubution of bowel gas is normal with bowel in all four quadrants as well as centrally. No dilated bowel loops. No free air. IMPRESSION: 1. Bilateral nephrolithiasis and left ureteral stent. 2. Unremarkable bowel gas pattern without obstruction. Report Dictated By: Amara Triana at 12/06/2017 6:39 AM Report E-Signed By: Amara Triana at 12/06/2017 6:42 AM WSN:[id number]
[2017-12-06] MEDS ORDERED: IOPAMIDOL-200 50 ML VIAL IS ONE ×2 (06:57→07:43)
[2017-12-06] MEDS ORDERED: fentaNYL CITR 100 MCG/2 ML AMP ONE ×3 (07:08→09:35)
[2017-12-06] MEDS ORDERED: LIDOCAINE 2% IV 100 MG/5ML SYR ONE (07:09)
[2017-12-06] MEDS ORDERED: PROPOFOL EMUL(*) 10MG/ML 20 ML 20 ML ONE (07:09)
[2017-12-06] MEDS ORDERED: DEXAMETHASONE SOD 4 MG/ML VIAL ONE (07:51)
[2017-12-06] MEDS ORDERED: ONDANSETRON 4 MG/2 ML VIAL ONE (07:52)
[2017-12-06] MEDS ORDERED: FAMO20TA28 PO (09:23)
[2017-12-06] MEDS ORDERED: IBUP800T37 PO (09:25)
[2017-12-06] MEDS ORDERED: CIPR-344 PO (09:25)
[2017-12-06] MEDS ORDERED: HYDR-4308 PO (09:44)
[2017-12-06 10:10] VITALS: BP 128/83
[2017-12-06 10:30] VITALS: BP 134/76
[2017-12-06 10:39] VITALS: BP 141/95
[2017-12-06 10:40] VITALS: BP 139/80
--- NOTE | 2017-12-06 12:14 | OPERATIVE REPORT 1 ---
EVENT DATE: December 06, 2017 SURGEON: Marcio Mcgill MD ANESTHESIOLOGIST: Masood Wen MD ANESTHESIA: General. PREOPERATIVE DIAGNOSIS Residual left renal lithiasis. POSTOPERATIVE DIAGNOSIS Residual left renal lithiasis. PROCEDURE PERFORMED 1. Left extracorporeal shock wave lithotripsy with three foci of calculi. 2. Cystourethroscopy and removal of left ureteral stent. DESCRIPTION OF PROCEDURE Under general anesthetic, the patient was prepped and draped in the extended lithotomy position. The patient was positioned for extracorporeal shock wave lithotripsy of the three foci in the left kidney. Each collection of stones were treated with a total of 1000 shocks progressing from low to high KV fairly slowly. The stones appear to be satisfactorily disintegrated. The patient is having difficulty passing the calculi. The patient admits to not percussing his kidney very frequently and positioning himself appropriately. The percussion of the flank area frequently throughout the day, particularly at bedtime, were again reemphasized with the patient. He said he would comply religiously to try to eradicate the stone fragments. The patient was prepped and draped and conclusion of the shock wave lithotripsy. The 21-Panendoscope was admitted through the urethra and into the bladder. Bloody urine was irrigated free from the bladder. The left ureteral stent was visualized and removed and was intact. The bladder was drained. Patient tolerated the procedure satisfactorily and returned to the recovery room in satisfactory condition. This is a 57-year-old white male complaining of left ureteral pelvic junction calculus. He has had previously treated as well as collection of stones in the inferior mid pole area of the left kidney. The patient has a problem with medullary sponge kidney. Patient has a long history of recurrent calculi and treatment thereof. Options were discussed with the patient pretreatment. He was agreeable to be treated to further decrease the disintegration of the calculi and hope to pass easier. The patient was again strongly advised of percussion of the kidney frequently every day. Patient will continue his usual medications in addition to Harwood, Cipro, Pepcid and Motrin therapy. MTDD
[2017-12-07] MEDS ORDERED: MIDAZOLAM 2 MG/2 ML VIAL IVP PRN (06:30)
== END 2017-12-06 10:10 | disposition home or self-care (01) ==
LOC: OR 02:05
DX: N20.0 Calculus of kidney (principal)
CPT/HCPCS: 50590; 52310; 74018; A4338; C1894; J1100; J2001; J2250; J2405; J2704; J3010; Q9966; J0690

== ENCOUNTER → 2017-12-14 | Outpatient (CLI) | payer SELFPAY ==
[~2017-12-14] MED LIST changes: +CIPR-344 PO
--- NOTE | 2017-12-14 15:36 | RADIOLOGY IMAGING REPORT ---
FACILITY: [facility] PATIENT NAME: Steve Gonzales : 1960 MR: [id number] V: [id number] EXAM DATE: ORDERING PHYSICIAN: CHELY MENDOZA TECHNOLOGIST: [place] [facility] [place]: Steve Gonzales : 1960 Visit/Account:[id number] Date of Sevice: 12/14/2017 KUB SINGLE VIEW ABDOMEN HISTORY: Left nephroureterolithiasis COMPARISON: X-ray examination December 06 FINDINGS: Left ureteral stent has been removed. No urolithiasis overlying the ureter or bladder. Persisting calcifications overlie the left lower pole calyx. Overall, the volume is decreased compar ed to December 06. IMPRESSION: Left ureteral stent has been removed. Persistent left lower pole calcifications, decreased compared to interval studies from November 22 and December 06. Report Dictated By: Uche Crocker MD at 12/14/2017 3:28 PM Report E-Signed By: Uche Crocker MD at 12/14/2017 3:31 PM WSN:[email or web address]
== END ==
LOC: RAD 13:58
DX: N20.0 Calculus of kidney (principal)
CPT/HCPCS: 74018